=== PATIENT | male | born 1965 | race American Indian/Alaskan Native ===

== ENCOUNTER 2019-10-15 03:47 | Emergency (ER) | payer SELFPAY ==
[2019-10-15 08:24] VITALS: BP 146/88
== END 2019-10-15 08:20 | disposition left against medical advice (07) ==
LOC: EDBD → ED 03:47
DX: R44.3 Hallucinations, unspecified (principal); Z53.21 Procedure and treatment not carried out due to patient leaving prior to being seen by health care provider

== ENCOUNTER 2019-10-16 05:25 | Emergency (ER) | payer OTHER ==
[2019-10-16 07:55] VITALS: BP 131/88
== END 2019-10-16 14:08 | disposition left against medical advice (07) ==
LOC: ED 05:25
DX: R44.3 Hallucinations, unspecified (principal); Z53.21 Procedure and treatment not carried out due to patient leaving prior to being seen by health care provider